=== PATIENT | male | born 1990 | race African-American/Black ===

== ENCOUNTER 2019-05-28 13:47 | Emergency (ER) | payer SELFPAY ==
[2019-05-28 15:02] LABS: Absolute Lymphocytes (CBC) 1.7 K/uL (0.7-4.9); Basophils % 0.6 % (0-1.3); Hematocrit 40.2 % (39.6-49.0); MPV 8.6 fL (7.6-11.3); RBC Red Blood Cell Count 5.43 M/uL (4.33-5.43)
[2019-05-28 15:06] LABS: Protime INR 1.04
[2019-05-28 15:31] LABS: ALT/SGPT 33 U/L (12-78); AST/SGOT 27 U/L (15-37); Albumin 3.7 g/dL (3.4-5.0); Alkaline Phosphatase 62 U/L (45-117); BUN Blood Urea Nitrogen 6 mg/dL (7-18); Bicarbonate 28 mmol/L (21-32); Bilirubin Direct 0.1 mg/dL (0-0.2); Bilirubin Total 0.4 mg/dL (0.2-1.0); Glucose Level 95 mg/dL (74-106); Potassium 3.9 mmol/L (3.5-5.1); Protein, Total 7.5 g/dL (6.4-8.2); Sodium Level 142 mmol/L (136-145)
[2019-05-28 16:57] LABS: Barbiturates NEGATIVE (NEGATIVE); Benzodiazepines NEGATIVE (NEGATIVE); Cocaine NEGATIVE (NEGATIVE); METHAMPHETAM NEGATIVE (NEGATIVE); Methadone NEGATIVE (NEGATIVE); Opiates NEGATIVE (NEGATIVE); Phencyclidine NEGATIVE (NEGATIVE); THC Cannibis NEGATIVE (NEGATIVE)
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
--- NOTE | 2019-05-28 17:14 | ER ---
Nurse's Notes [facility] Name: Alexandro Jacobo Age: 29 yrs Sex: Male : 1990 Arrival Date: 05/28/2019 Time: 13:49 Bed 17 Private MD: Diagnosis: Major depressive disorder, recurrent Presentation: 05/28 13:57 Presenting complaint: Patient states: i am homeless, i havent been feeling right i am tw2 depressed, and my stomach started hurting on the right side i have been feeling nauseous, i do feel like i want to hurt myself i would take whatever pills and take them all i just dont want to wake up anymore, i have just been through too much. Transition of care: patient was not received from another setting of care. Onset of symptoms was May 28, 2019. Risk Assessment: Do you want to hurt yourself or someone else? Patient reports desire/thoughts of hurting themselves or someone else. Provider notified. Other: pt denies HI. Initial Sepsis Screen: Does the patient meet any 2 criteria? No. Patient's initial sepsis screen is negative. Does the patient have a suspected source of infection? No. Patient's initial sepsis screen is negative. Care prior to arrival: None. 13:57 Method Of Arrival: Law Enforcement: Sixto GILMORE tw 13:57 Acuity: EDENILSON 2 tw2 Triage Assessment: 14:00 General: Appears in no apparent distress. slender, unkempt, Behavior is calm, tw2 cooperative, appropriate for age, crying. Pain: Complains of pain in right upper quadrant. Musculoskeletal: Reports pain in right mid back and right low back. Historical: - Allergies: 14:02 No Known Allergies; tw2 - Home Meds: 14:02 None [Active]; tw2 - PMHx: 14:02 None; tw2 - PSHx: 14:02 None; tw2 - Immunization history:: Adult Immunizations unknown. - Coronavirus screen:: The patient has NOT traveled to [place] in the past 14 days. - Social history:: Smoking status: Patient reports the use of cigarette tobacco products, smokes one pack cigarettes per day. - Ebola Screening: : Patient denies travel to an Ebola-affected area in the 21 days before illness onset. Screenin:19 Abuse screen: Denies threats or abuse. Denies injuries from another. Nutritional ca1 screening: No deficits noted. Tuberculosis screening: No symptoms or risk factors identified. Fall Risk IV access (20 points). Assessment: 14:19 General: Appears in no apparent distress. comfortable, Behavior is calm, cooperative, ca1 appropriate for age. Pain: Denies pain. Neuro: Level of Consciousness is awake, alert, obeys commands, Oriented to person, place, time, situation, Appropriate for age. Cardiovascular: Heart tones S1 S2 present Capillary refill < 3 seconds Patient's skin is warm and dry. Respiratory: Airway is patent Respiratory effort is even, unlabored, Respiratory pattern is regular, symmetrical, Breath sounds are clear bilaterally. GI: Abdomen is flat, non-distended, Bowel sounds present X 4 quads. GI: Abd is soft and non tender X 4 quads. : No deficits noted. No signs and/or symptoms were reported regarding the genitourinary system. EENT: No signs and/or symptoms were reported regarding the EENT system. Derm: Skin is intact, is healthy with good turgor, Skin is pink, warm \T\ dry. Musculoskeletal: Circulation, motion, and sensation intact. Capillary refill < 3 seconds. 15:04 Reassessment: Patient appears in no apparent distress at this time. Patient and/or ca1 family updated on plan of care and expected duration. Pain level reassessed. Patient is alert, oriented x 3, equal unlabored respirations, skin warm/dry/pink. 16:03 Reassessment: Patient appears in no apparent distress at this time. Patient and/or ca1 family updated on plan of care and expected duration. Pain level reassessed. Patient is alert, oriented x 3, equal unlabored respirations, skin warm/dry/pink. 17:00 Reassessment: Patient appears in no apparent distress at this time. Patient and/or ca1 family updated on plan of care and expected duration. Pain level reassessed. Patient is alert, oriented x 3, equal unlabored respirations, skin warm/dry/pink. 17:50 Reassessment: Patient appears in no apparent distress at this time. Patient is alert, ca1 oriented x 3, equal unlabored respirations, skin warm/dry/pink. Psych: 14:22 Subjective: Patient's mood is sad, Delusions are denied, Hallucinations are denied ca1 Having thoughts of suicide. Plan for suicide is to OD on any pills he can get his hands on. Objective: Patient is cooperative, Speech is normal, Affect is appropriate, Patient has mutilated themselves by Denied. Interventions: Removed personal items and placed in bag. Patient placed in hospital gown. Searched person for dangerous items. Urine collected and sent for urine drug test. Belonging list filled out. Patient reassessed during use of restraints. Patient is physically safe. Patient's cardiac status is stable. Patient's respirations are even and unlabored. Patient has good circulation in all extremities as indicated by capillary refill < 3 seconds. Patient's ROM assessed and is intact. Patient nutrition and hydration needs will continue to be monitored and addressed. Patient hygiene and elimination needs met. Patient assessed for signs of distress. Patient remains reasonably comfortable at this time. Assisted patient in de-escalation of behavior by removing stimuli causing behavior where possible. Suicide Risk Assessment: Sad Person Scale: Sex of patient: Male: Score 1 point. Age of patient: Score 1 point if patient 15-34. Depression: Score 1 point if signs of depression are present. Previous Attempt: Score 1 point if patient has previously attempted suicide. Substance Abuse: Score 1 point if patient abuses alcohol or drugs. Rational Thinking: Score 0 point if patient has rational thinking. Social Support: Score 1 point if social support is lacking and/or unavailable. Organized Plan: Score 1 point if patient had a plan in place. Relationship: Score 1 point if patient is , , , or for a single male Chronic Sickness: Score 0 point if patient does not have a chronic illness, debilitating, or severe disorder. TOTAL POINTS: If total points are 7-10, the proposed clinical action is to hospitalize or commit. Implement suicide precautions. Safety Checks: Personal items have been removed. Pt has been placed in a hallway bed/chair. No visitors are present at this time. Patient uses 1/2 pint of liquor, 1-2 per week Last use was 1 weeks ago. Patient does not have a history of DTs. K2 or fake weed. Last used 2 days ago. 17:52 Commitment: discharged by provider. ca1 Vital Signs: 14:02 BP 115 / 74; Pulse 62; Resp 17; Temp 97.6(O); Pulse Ox 100% on R/A; Weight 81.92 kg tw2 (M); Height 6 ft. 0 in. (182.88 cm); Pain 6/10; 17:50 BP 121 / 81; Pulse 81; Resp 17 S; Pulse Ox 100% on R/A; ca1 14:02 Body Mass Index 24.49 (81.92 kg, 182.88 cm) tw2 ED Course: 13:49 Patient arrived in ED. mr 14:00 Triage completed. tw2 14:01 Arm band placed on. tw2 14:04 Laura Arellano RN is Primary Nurse. ca1 14:05 Crow Castellano PA is PHCP. jr8 14:05 Josh Niño MD is Attending Physician. jr8 14:19 Patient has correct armband on for positive identification. Placed in gown. Bed in low ca1 position. Call light in reach. Valuables inventory done. See valuables checklist. Sitter at bedside. Warm blanket given. Patient is placed in psych hold. 14:19 No provider procedures requiring assistance completed. ca1 17:07 Diet: Patient given a regular meal tray. 3 17:51 IV discontinued, intact, bleeding controlled, Pressure dressing applied. ca1 Administered Medications: No medications were administered Outcome: 17:12 Discharge ordered by . jr8 17:51 Discharged to home ambulatory. ca1 17:51 Condition: stable 17:51 Discharge instructions given to patient, Instructed on discharge instructions, follow up and referral plans. Demonstrated understanding of instructions, follow-up care. 17:52 Patient left the ED. ca1 Signatures: Tami Osborn mr Crow Castellano PA PA jr8 Tierra Rollins RN RN 2 Hiwot Lyons 3 Laura Arellano RN RN ca1
[2019-05-28 17:23] LABS: Urine Blood NEGATIVE (NEG); Urine Glucose NEGATIVE (NEG); Urine Protein NEGATIVE (NEG); Urine pH 6.5 (5.0-7.0)
[2019-05-28 17:56] VITALS: TEMP 97.6; O2SAT 100
[2019-05-28 17:57] VITALS: BP 121/81
--- NOTE | 2019-05-29 07:52 | EKG ---
Test Date: 2019-05-28 Test Time: 15:03:24 Helpdesk Administrator: ÁLVARO MEASUREMENT RESULTS: Intervals: Rate: 61 MT: 164 QRSD: 84 QT: 396 QTc: 398 [place]: P: 36 MT: 164 QRS: 89 T: 47 INTERPRETIVE STATEMENTS: Normal sinus rhythm with sinus arrhythmia Normal ECG No previous ECG available for comparison Electronically Signed On 05-29-19 07:51:46 TOP ICER by Miles White
== END 2019-05-28 17:52 | disposition home or self-care (01) ==
LOC: ER 13:47
DX: F33.9 Major depressive disorder, recurrent, unspecified (principal); F17.210 Nicotine dependence, cigarettes, uncomplicated
CPT/HCPCS: 36415; 80048; 80076; 80307; 80320; 80329; 81003; 85025; 85610; 85730; 93005; 99284

== ENCOUNTER 2019-10-16 19:56 | Emergency (ER) | payer SELFPAY ==
[2019-10-16] MEDS ORDERED: NA CHLORIDE 0.9% 2,000 ML ONE (20:13)
[2019-10-16 20:48] LABS: Barbiturates NEGATIVE (NEGATIVE); Benzodiazepines POSITIVE (NEGATIVE); Cocaine NEGATIVE (NEGATIVE); METHAMPHETAM NEGATIVE (NEGATIVE); Methadone NEGATIVE (NEGATIVE); Opiates NEGATIVE (NEGATIVE); Phencyclidine NEGATIVE (NEGATIVE); THC Cannibis NEGATIVE (NEGATIVE)
[2019-10-16 21:06] LABS: Absolute Lymphocytes (CBC) 1.1 K/uL (0.7-4.9); Basophils % 0.6 % (0-1.3); Hematocrit 36.3 % (39.6-49.0); Lymphocytes % 8.7 % (15.3-44.8); MPV 8.9 fL (7.6-11.3); RBC Red Blood Cell Count 5.02 M/uL (4.33-5.43)
[2019-10-16 21:15] LABS: ALT/SGPT 38 U/L (12-78); AST/SGOT 54 U/L (15-37); Albumin 3.5 g/dL (3.4-5.0); Alkaline Phosphatase 51 U/L (45-117); BUN Blood Urea Nitrogen 10 mg/dL (7-18); Bicarbonate 22 mmol/L (21-32); Bilirubin Direct < 0.1 mg/dL (0-0.2); Bilirubin Total 0.3 mg/dL (0.2-1.0); Glucose Level 110 mg/dL (74-106); Potassium 3.8 mmol/L (3.5-5.1); Protein, Total 6.8 g/dL (6.4-8.2); Sodium Level 143 mmol/L (136-145); Thyroid Stimulating Hormone 0.948 uIU/mL (0.360-3.740); Troponin (Emerg Dept Use Only) < 0.02 ng/mL (0.0-0.045)
[2019-10-16 21:18] LABS: Creatine Phosphokinase 1697 U/L (39-308)
[2019-10-16 21:27] LABS: Protime INR 1.09
[2019-10-16] MEDS ORDERED: NA CHLORIDE 0.9% 1,000 ML ONE (22:11)
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
--- NOTE | 2019-10-16 22:29 | EDPHYS ---
Physician Documentation [facility] Name: Alexandro Jacobo Age: 29 yrs Sex: Male : 1990 Arrival Date: 10/16/2019 Time: 19:58 Bed 3 Private MD: ED Physician Maurizio Gotti HPI: 10/15 20:27 This 29 yrs old Black Male presents to ER via EMS with complaints of Bizarre Behavior. mh7 20:27 Onset: The symptoms/episode began/occurred today. Past psychiatric history: Prior mh7 diagnosis: no previous psychiatric diagnosis known, Psychiatric medications include: none, Primary psychiatric physician: the patient does not have a primary psychiatric physician, the patient has not had a prior suicide gesture, the patient does not have a previous inpatient psychiatric history, the patient's last psychiatric treatment was none. Associated signs and symptoms: Pertinent negatives: abdominal pain, anxiety, chest pain, chills, delusions, depression, fever, hallucinations, headache, homicidal ideation, nausea, night sweats, palpitations, paranoia, shortness of breath, substance abuse, suicide ideation, tremor, vomiting. Severity of symptoms: At their worst the symptoms were moderate just prior to arrival, today, in the emergency department the symptoms have improved markedly. Patient was dancing in the street then laid down on road. Police arrived at scene and found patient with elevated heart rate. He denies any drug use, injuries, suicidal ideation, homicidal ideation, headache, chest pain, abdominal pain, SOB. He states that he has not drank much fluid today.. Historical: - Allergies: 20:03 No Known Allergies; ea - PMHx: 20:03 None; ea - PSHx: 20:03 None; ea - Immunization history:: Adult Immunizations up to date. - Social history:: Smoking status: unknown. ROS: 20:27 Constitutional: Negative for fever, chills, and weight loss, Eyes: Negative for injury, mh7 pain, redness, and discharge, ENT: Negative for injury, pain, and discharge, Neck: Negative for injury, pain, and swelling, Cardiovascular: Negative for chest pain, palpitations, and edema, Respiratory: Negative for shortness of breath, cough, wheezing, and pleuritic chest pain, Abdomen/GI: Negative for abdominal pain, nausea, vomiting, diarrhea, and constipation, Back: Negative for injury and pain, : Negative for injury, bleeding, discharge, and swelling, MS/Extremity: Negative for injury and deformity, Skin: Negative for injury, rash, and discoloration, Neuro: Negative for headache, weakness, numbness, tingling, and seizure, Psych: Negative for depression, anxiety, suicide ideation, homicidal ideation, and hallucinations, Allergy/Immunology: Negative for hives, rash, and allergies, Endocrine: Negative for neck swelling, polydipsia, polyuria, polyphagia, and marked weight changes, Hematologic/Lymphatic: Negative for swollen nodes, abnormal bleeding, and unusual bruising. Exam: 20:27 Constitutional: This is a well developed, well nourished patient who is awake, alert, mh7 and in no acute distress. Head/Face: Normocephalic, atraumatic. Eyes: Pupils equal round and reactive to light, extra-ocular motions intact. Lids and lashes normal. Conjunctiva and sclera are non-icteric and not injected. Cornea within normal limits. Periorbital areas with no swelling, redness, or edema. 20:27 Neck: Trachea midline, no thyromegaly or masses palpated, and no cervical lymphadenopathy. Supple, full range of motion without nuchal rigidity, or vertebral point tenderness. No Meningismus. Chest/axilla: Normal chest wall appearance and motion. Nontender with no deformity. No lesions are appreciated. 20:27 Respiratory: Lungs have equal breath sounds bilaterally, clear to auscultation and percussion. No rales, rhonchi or wheezes noted. No increased work of breathing, no retractions or nasal flaring. Abdomen/GI: Soft, non-tender, with normal bowel sounds. No distension or tympany. No guarding or rebound. No evidence of tenderness throughout. Back: No spinal tenderness. No costovertebral tenderness. Full range of motion. Skin: Warm, dry with normal turgor. Normal color with no rashes, no lesions, and no evidence of cellulitis. MS/ Extremity: Pulses equal, no cyanosis. Neurovascular intact. Full, normal range of motion. Neuro: Awake and alert, GCS 15, oriented to person, place, time, and situation. Cranial nerves II-XII grossly intact. Motor strength 5/5 in all extremities. Sensory grossly intact. Cerebellar exam normal. Normal gait. Psych: Awake, alert, with orientation to person, place and time. Behavior, mood, and affect are within normal limits. 20:27 ENT: External ear(s): are unremarkable, Nose: is normal, Mouth: Lips: dry, cracked, Oral mucosa: dry, Gums: normal with healthy appearance, Tongue: displays fissures, abscess, is not appreciated, drooling, is not appreciated, Posterior pharynx: is normal, airway is patent, Dental exam: normal, Voice: is normal. 20:27 Cardiovascular: Rate: tachycardic, Rhythm: regular, Pulses: no pulse deficits are appreciated, Heart sounds: normal, normal S1and S2, Edema: is not appreciated, JVD: is not appreciated. 10/16 01:32 ECG was reviewed by the Attending Physician. [facility] Vital Signs: 10/15 19:48 BP 122 / 75; Pulse 144; Resp 24; Temp 98.9; Pulse Ox 98% ; Weight 77.11 kg; Height 6 ea ft. 1 in. (185.42 cm); 20:25 BP 136 / 74; Pulse 127; Resp 11; Pulse Ox 98% ; ea 21:07 BP 147 / 84; Pulse 107; Resp 18; Pulse Ox 98% on R/A; ea 22:09 BP 148 / 84; Pulse 88; Resp 19; Pulse Ox 99% ; ea 22:31 BP 146 / 86; Pulse 91; Resp 17; Temp 98.5; Pulse Ox 99% on R/A; ea 19:48 Body Mass Index 22.43 (77.11 kg, 185.42 cm) ea MDM: 20:20 Patient medically screened. [facility] 22:24 Differential diagnosis: drug withdrawal. acute psychotic break, depression, Substance [facility] Abuse, Rhabdomyolysis, Dehydration. Data reviewed: vital signs, nurses notes, EMS record, old medical records, lab test result(s), cardiac enzymes, CBC, drug level(s), electrolytes, EKG, radiologic studies, plain films. Data interpreted: monitoring tech: rate is 88 beats/min, rhythm is normal sinus rhythm, regular, Interpretation: normal rate, normal rhythm, Pulse oximetry: on room air is 99 %. Interpretation: normal. Counseling: I had a detailed discussion with the patient and/or guardian regarding: the historical points, exam findings, and any diagnostic results supporting the discharge/admit diagnosis, the presence of at least one elevated blood pressure reading (>120/80) during this emergency department visit, lab results, radiology results. Response to treatment: the patient's symptoms have resolved after treatment, the patient's blood pressure is in an acceptable range, mental status has returned to baseline, the patient no longer shows bradycardia, the patient is not short of breath, the patient is not tachycardic, the patient's pain is gone, the patient's temperature has normalized. Refusal of service: The patient/guardian displays adequate decision making capability and despite a detailed discussion of alternatives, benefits, risks, and consequences refuses: CT Scan, Medications, IV Fluids. 10/15 20:01 Order name: Acetaminophen; Complete Time: 22:15 10/15 20: Order name: Basic Metabolic Panel; Complete Time: 22:15 10/15 20:01 Order name: CBC with Diff; Complete Time: 22:15 10/15 20:01 Order name: ETOH Level; Complete Time: 22:15 10/15 20:01 Order name: Hepatic Function; Complete Time: 22:15 10/15 20:01 Order name: PT-INR; Complete Time: 22:15 10/15 20:01 Order name: Ptt, Activated; Complete Time: 22:15 10/15 20:01 Order name: Salicylate; Complete Time: 22:15 10/15 20:01 Order name: Urine Drug Screen; Complete Time: 22:15 10/15 20:22 Order name: CPK; Complete Time: 22:15 7 10/15 20:22 Order name: Troponin (emerg Dept Use Only); Complete Time: 22:15 7 10/15 20:49 Order name: Thyroid Stimulating Hormone; Complete Time: 22:15 EDMS 10/15 22:19 Order name: UA ea 10/15 20:01 Order name: EKG; Complete Time: 20:02 10/15 20:01 Order name: EKG - Nurse/Tech; Complete Time: 20:02 10/15 20:01 Order name: IV Saline Lock; Complete Time: 20:02 10/15 20:01 Order name: Labs collected and sent; Complete Time: 20:02 10/15 20:01 Order name: Urine Dipstick-Ancillary (obtain specimen); Complete Time: 22:32 rv 10/15 20:22 Order name: Chest Single View XRAY mh7 EC/11 01:32 Rate is 141 beats/min. Rhythm is regular, Sinus tachycardia. QRS [place] is Normal. QRS is mh7 positive in leads V2, V3, V4. [place] interval is normal. QRS interval is normal. QT interval is normal. No Q waves. T waves are Normal. No ST changes noted. Clinical impression: Sinus tachycardia. Administered Medications: 10/15 20:02 Drug: NS 0.9% 1000 ml Route: IV; Rate: 1 bolus; Site: right antecubital; rv 20:57 Follow up: IV Status: Completed infusion; IV Intake: 1000ml rv 20:56 Drug: NS 0.9% 1000 ml Route: IV; Rate: 1000 ml; Site: right antecubital; rv 22:32 Follow up: IV Status: Completed infusion; IV Intake: 1000ml rv 22:26 Not Given (Patient Refused): NS 0.9% 1000 ml IV at 1 bolus Per protocol; 1000 mL bolus ea Disposition: 10/16/19 22:29 Patient has left against medical advice. Impression: Rhabdomyolysis, Dehydration. - Patients states they are going to Home. - Condition is Stable. - Discharge Instructions: Rhabdomyolysis, Dehydration, Adult, [id number]. Follow up: Private Physician; When: 1 - 2 days; Reason: Worsening of condition, Recheck today's complaints, Continuance of care, Re-evaluation by your physician. Follow up: Rufina Parks MD; When: 1 - 2 days; Reason: Worsening of condition, Recheck today's complaints. - Problem is new. - Symptoms have improved. Signatures: Dispatcher [employer] EDME Mel Garcia RN RN ea Vicente, Ronaldo, RN RN rv Holmes, Maurice, MD MD mh7 Corrections: (The following items were deleted from the chart) 20:34 20:26 The patient presents to the emergency department with mh7 mh7 20:34 20:26 The patient presents with mh7 mh7 20:50 20:37 THYROID STIMULAT HORMONE+C.LAB.BRZ ordered. [facility] 22:33 22:29 10/16/2019 22:29 Patients has left against medical advice. Impression: rv Rhabdomyolysis; Dehydration. Patient states they are going to Home. Condition is Stable. Follow up: Private Physician; When: 1 - 2 days; Reason: Worsening of condition, Recheck today's complaints, Continuance of care, Re-evaluation by your physician. Follow up: Rufina Pakrs; When: 1 - 2 days; Reason: Worsening of condition, Recheck today's complaints. Problem is new. Symptoms have improved. mh7
[2019-10-16 22:45] VITALS: O2SAT 99
[2019-10-16 22:47] VITALS: BP 146/86; TEMP 98.5
[2019-10-16 23:09] LABS: Urine Appearance CLEAR; Urine Bilirubin NEGATIVE (NEG); Urine Blood NEGATIVE (NEG); Urine Color YELLOW; Urine Glucose NEGATIVE (NEG); Urine Microscopic Reflex NO UMIC; Urine Protein 1+ (NEG); Urine Specific Gravity 1.025 (1.005-1.030); Urine Urobilinogen 0.2 mg/dL (0.2-1.0); Urine pH 5.5 (5.0-7.0)
--- NOTE | 2019-10-17 08:52 | RAD REPORT ---
EXAM DESCRIPTION: RAD - Chest Single View - 10/16/2019 9:21 pm CLINICAL HISTORY: tachycardia COMPARISON: None TECHNIQUE: AP portable chest image was obtained 10/16/2019 9:21 pm . FINDINGS: Lungs are clear. Heart and vasculature are normal. No measurable pleural effusion and no p neumothorax. No acute bony abnormality seen. No acute aortic findings suspected. IMPRESSION: No acute cardiopulmonary process.
== END 2019-10-16 22:33 | disposition left against medical advice (07) ==
LOC: ER 19:56
DX: M62.82 Rhabdomyolysis (principal); E86.0 Dehydration
CPT/HCPCS: 36415; 71045; 80048; 80076; 80307; 80320; 80329; 81003; 82550; 84443; 84484; 85025; 85610; 85730; 93005; 96360; 96361; 99284; J7030